=== PATIENT | female | born 1965 | race Caucasian/White ===

== ENCOUNTER 2017-03-20 19:24 | Emergency (ER) | payer MEDICAID, OTHER ==
[~2017-03-20] VITALS: Ht 152.4 cm; Wt 50.0 kg
[~2017-03-20 19:24] MED LIST: NOCURR
[2017-03-20] MEDS ORDERED: CLON.5 PO (19:30)
[2017-03-20 19:59] LABS: BASOPHILS # (AUTO) 0.01 K/uL (0.00-0.20); BASOPHILS % (AUTO) 0.2 % (0.0-2.0); EOSINOPHILS # (AUTO) 0.07 K/uL (0.00-0.70); EOSINOPHILS % (AUTO) 1.37 % (1.0-6.0); HEMOGLOBIN 12.1 g/dL (12.0-16.0); LYMPHOCYTES # (AUTO) 0.5 K/uL (1.0-4.8); LYMPHOCYTES % (AUTO) 9.8 % (22.0-44.0); MEAN CORPUSCULAR HGB CONC 32.6 G/dL (31.0-37.0); MEAN CORPUSCULAR VOLUME 95 fL (80-100); MONOCYTES # (AUTO) 0.3 K/uL (0.1-1.0); MONOCYTES % (AUTO) 4.5 % (2.0-9.0); NEUTROPHILS # (AUTO) 4.6 K/uL (1.8-7.7); NEUTROPHILS % (AUTO) 84.1 % (40.0-70.0); PLATELET COUNT (AUTO) 203 K/uL (150-450); RED BLOOD CELL COUNT(AUTO) 3.89 MIL/uL (4.00-5.20); RED CELL DISTRIBUTION WIDTH 13.3 % (11.5-14.5)
[2017-03-20 20:13] LABS: CALCIUM, TOTAL 8.6 mg/dL (8.8-10.5); CREATININE 1.14 mg/dL (0.60-1.30); POTASSIUM 3.1 mmol/L (3.5-5.1)
[2017-03-20 20:43] VITALS: BP 132/80
== END 2017-03-20 20:48 | disposition home or self-care (01) ==
LOC: EMS 19:26
DX: R07.9 Chest pain, unspecified (principal); Z02.89 Encounter for other administrative examinations; Z88.0 Allergy status to penicillin
CPT/HCPCS: 93005; 99285

== ENCOUNTER → 2024-05-27 | Emergency (ER) | payer MEDICAID ==
[~2024-05-27] VITALS: Ht 152.4 cm; Wt 59.0 kg
[~2024-05-27] MED LIST changes: +CHLO473M2 MM; +CLIN-26 PO; +CLON-592 PO; -NOCURR
[2024-05-27 19:52] VITALS: BP 145/90; PULSE 93; RESP 19; TEMP 98.3; O2SAT 96
[2024-05-27] MEDS: IBUPROFEN 400 MG TABLET PO ONE (22:57)
[2024-05-27] MEDS: ACETAMINOPHEN 500 MG TABLET PO ONE (22:57)
[2024-05-27] MEDS: CLINDAMYCIN HCL 150 MG CAPSULE PO ONE (23:19)
== END | disposition home or self-care (01) ==
LOC: EMS 19:47
DX: K12.2 Cellulitis and abscess of mouth (principal); K04.7 Periapical abscess without sinus; F41.9 Anxiety disorder, unspecified; Z88.0 Allergy status to penicillin; Z86.19 Personal history of other infectious and parasitic diseases; Z79.899 Other long term (current) drug therapy
CPT/HCPCS: 99284; Z7502; Z7610